=== PATIENT | female | born 2005 | race Two or more races ===

== ENCOUNTER 2025-07-30 23:07 | Emergency (ER) | payer MEDICAID ==
[~2025-07-30] VITALS: Ht 160 cm; Wt 96.8 kg
[~2025-07-30 23:07] MED LIST: IBUP-1455 PO; NITR-87 PO; ZOFR4T PO
[2025-07-30 23:10] VITALS: BP 124/88; PULSE 85; RESP 16; TEMP 97.5
[2025-07-31] MEDS ORDERED: IBUP1TAB4 PO (03:08)
[2025-07-31] MEDS ORDERED: CYCL-614 PO (03:08)
--- NOTE | 2025-07-31 03:08 | ED.PDOC ---
Musculoskeletal HPI Comments 19-YEAR-OLD FEMALE PRESENTS TO ER WITH COMPLAINTS OF RIGHT SHOULDER PAIN X2 DAYS. PATIENT STATES SHE STARTED EXPERIENCING RIGHT POSTERIOR SHOULDER PAIN 2 DAYS AGO. DENIES TRAUMA/FALLS/KNOWN INJURY AND RATES HER CURRENT PAIN AN 8/10 TO RIGHT POSTERIOR SHOULDER WITHOUT RADIATION. DENIES USE OF MEDICATIONS FOR CURRENT SYMPTOMS AND STATES HER PAIN IS WORSE WITH MOVEMENT AND BETTER WITH REST. PATIENT PRESENTS TO ER IN NO DISTRESS WITH FULL ROM OF MOTION TO RIGHT SHOULDER NOTED. DENIES NUMBNESS/TINGLING, SHORTNESS OF BREATH, CHEST PAIN OR ANY FURTHER SYMPTOMS/COMPLAINTS Chief Complaint: Upper Extremity Time Seen by MD: 23:46 Primary Care Provider: CHUY Renae Notes: Nurses Notes, Medications, Allergies Allergies: Coded Allergies: NO KNOWN ALLERGIES (Unverified , 07/25/24) Home Meds Active Scripts Cyclobenzaprine HCl (Cyclobenzaprine Hydrochlo) 5 Mg Tab, 5 MG PO QHSP, #14 TAB 0 Refills Prov:LISA MATTA 07/31/25 Ibuprofen Micronized (Ibuprofen) 400 Mg Tab, 400 MG PO Q6HPRN, #30 TAB 0 Refills Prov:LISA MATTA 07/31/25 Ibuprofen Micronized (Ibuprofen) 800 Mg Tab, 800 MG PO Q8HP PRN, #15 TAB Prov:PARI FELIX PAC 07/26/24 Ondansetron Odt 4MG Tab (ZOFRAN PO) 4 Mg Tb, 4 MG PO Q6HP PRN, #15 TAB ODT TAB-DISSOLVE IN MOUTH, THEN SWALLOW Prov:PARI FELIX PAC 07/26/24 Nitrofurantoin Monohydrate Mac (Macrobid) 100 Mg Cap, 100 MG PO BID for 5 Days, #10 CAP Prov:PARI FELIX PAC 07/26/24 Information Source: Patient Mode of Arrival: Ambulatory Past Medical History PAST MEDICAL HISTORY: Liver Surgical History: Cholecystectomy CONTRACT CLERK History: No Pertinent CONTRACT CLERK History [facility] 07-17-25 Family History Family History: Unknown Social History Smoker: Non-Smoker Alcohol: Denies ETOH Use Drugs: Denies Drug Use Lives In: Home Constitutional: denies: chills, diaphoresis, fatigue, fever, malaise, sweats, weakness, others EENTM: denies: blurred vision, double vision, ear bleeding, ear discharge, ear drainage, ear pain, ear ringing, eye pain, eye redness, hearing loss, mouth pain, mouth swelling, nasal discharge, nose bleeding, nose congestion, nose pain, photophobia, tearing, throat pain, throat swelling, voice changes, others Respiratory: denies: cough, hemoptysis, orthopnea, SOB at rest, shortness of breath, SOB with excertion, stridor, wheezing, others Cardiovascular: denies: chest pain, dizzy spells, diaphoresis, Dyspnea on exertion, edema, irregular heart beat, left arm pain, lightheadedness, palpitations, PND, syncope, others Gastrointestinal: denies: abdomen distended, abdominal pain, blood streaked bowels, constipated, diarrhea, dysphagia, difficulty swallowing, hematemesis, melena, nausea, poor appetite, poor fluid intake, rectal bleeding, rectal pain, vomiting, others Genitourinary: denies: abnormal vagina bleeding, burning, dyspareunia, dysuria, flank pain, frequency, hematuria, incontinence, pain, , vagina discharge, urgency, others Neurological: denies: dizziness, fainting, headache, left sided numbness, left sided weakness, numbness, paresthesia, pre-existing deficit, right sided numbness, right sided weakness, seizure, speech problems, tingling, tremors, weakness, others Musculoskeletal: reports: others ( STATED IN HPI) Integumetry: denies: bruises, change in color, change in hair/nails, dryness, laceration, lesions, lumps, rash, wounds, others Allergic/Immunocompromised: denies: Difficulty Healing, Frequent Infections, Hives, Itching, others Hematologic/Lymphatic: denies: anemia, blood clots, easy bleeding, easy bruising, swollen glands, others Endocrine: denies: excessive hunger, excessive sweating, excessive thirst, excessive urination, flushing, intolerance to cold, intolerance to heat, unexplained weight gain, unexplained weight loss, others Psychiatric: denies: anxiety, bipolar disorder, depression, hopeless, panic disorder, schizophrenia, sleepless, suicidal, others Physical Exam General Appearance: No Apparent Distress, Obese HEENT: PERRL/EOMI Neck: Full Range of Motion, Non-Tender, Normal Respiratory: Chest Non-Tender, Lungs Clear, No Accessory Muscle Use, No Respiratory Distress, Normal Breath Sounds Cardiovascular: No Murmur, No Gallop, Regular Rate/Rhythm Breast Exam: Deferred Gastrointestinal: NOT DONE Genitalia: Deferred Pelvic: Deferred Rectal: Deferred Extremities: Normal capillary refill, Normal range of motion Musculoskeletal : Extremity Location: Shoulder (SLIGHT TTP TO RIGHT TRAPEZIUS NOTED. NO BONY TENDERNESS APPRECIATED. PATIENT ABLE TO FULLY MOVE RIGHT SHOULDER. NO D EFORMITY/SKIN CHANGES NOTED. PULSES INTACT) Neurologic: Alert, No Motor Deficits, Normal Affect, Normal Mood, No Sensory Deficits Cerebellar Function: Normal Reflexes: Normal Skin: Dry, Normal Color, Warm Peripheral Pulses: 2+ carotid (R), 2+ carotid (L), 2+ Radial (R), 2+ Radial (L), 2+ Brachial (R), 2+ Brachial (L) Lymphatic: No Adenopathy Was a procedure done? Was a procedure done?: No Sedation Sedation?: No Differential Diagnosis EXT Differential Diagnosis: Fracture, Dislocation, Neurovascular injury X-Ray, Labs, Meds, VS Vital Signs Date Time Temp Pulse Resp B/P (MAP) Pulse Ox O2 Delivery O2 Flow Rate FiO2 07/30/25 23:10 97.5 85 16 124/88 97.5 PATIENT NEUROVASCULARLY INTACT ADVISED TO ALTERNATE HEAT/ICE ON/OFF ADVISED TO FOLLOW UP WITH PCP IN 1-2 DAYS PATIENT VERBALIZED UNDERSTANDING AND AGREEABLE WITH CURRENT PLAN OF CARE ADVISED TO RETURN TO ER IMMEDIATELY IF SYMPTOMS WORSE Time of 1ST Reevaluation: 02:40 Reevaluation 1ST: N/A Patient Education/Counseling: Diagnosis, Treatment, Prognosis, Need For Follow Up Family Education/Counseling: No Family Present Departure 1 Departure Time of Disposition: 03:02 Impression: Primary Impression: Muscle strain of right shoulder Qualified Codes: S46.911A - Strain of unspecified muscle, fascia and tendon at shoulder and upper arm level, right arm, initial encounter Disposition: HOME / SELF CARE / HOMELESS Condition: Stable e-Prescriptions Cyclobenzaprine HCl (Cyclobenzaprine Hydrochlo) 5 Mg Tab 5 MG PO QHSP, #14 TAB 0 Refills Prov: LISA MATTA 07/31/25 Ibuprofen Micronized (Ibuprofen) 400 Mg Tab 400 MG PO Q6HPRN, #30 TAB 0 Refills Prov: LISA MATTA 07/31/25 Discharged With: Self Critical Care Note Critical Care Time?: No Stability Stability form required: No Heart Score Heart Score: Heart Score Response (Comments) Value History N/A 0 EKG N/A 0 Age N/A 0 Risk Factors N/A 0 Troponin N/A 0 Total 0 LISA MATTA Jul 31, 2025 03:08
== END 2025-07-31 03:14 | disposition home or self-care (01) ==
LOC: ER 23:07
DX: S46.911A Strain of unspecified muscle, fascia and tendon at shoulder and upper arm level, right arm, initial encounter (principal); Z90.49 Acquired absence of other specified parts of digestive tract; X58.XXXA Exposure to other specified factors, initial encounter; Y93.89 Activity, other specified; Y92.89 Other specified places as the place of occurrence of the external cause; Y99.8 Other external cause status